=== PATIENT | male | born 2000 | race Caucasian/White ===

== ENCOUNTER 2024-01-22 03:38 | Emergency (ER) | payer OTHER ==
[2024-01-22] MEDS ORDERED: LIDOCAINE 1% 20 ML MDV ONE (03:48)
[2024-01-22] MEDS ORDERED: IBUPROFEN 400 MG TAB ONE (03:49)
[2024-01-22] MEDS ORDERED: TDAP (DIPHTH,PERTUSS(ACELL),TET VAC) 0.5 ML VIAL IMVAC ONE (03:49)
[2024-01-22] MEDS ORDERED: DIAZEPAM 5 MG TABLET ONE (04:06)
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
[2024-01-22] MEDS ORDERED: TRAMADOL HCL 50 MG TAB ONE (06:27)
[2024-01-22 09:02] VITALS: TEMP 98.1
[2024-01-22 09:10] VITALS: BP 111/84; O2SAT 100
== END 2024-01-22 06:56 | disposition home or self-care (01) ==
LOC: ER 03:38
DX: S01.81XA Laceration without foreign body of other part of head, initial encounter (principal); S51.811A Laceration without foreign body of right forearm, initial encounter; S61.011A Laceration without foreign body of right thumb without damage to nail, initial encounter; Y04.8XXA Assault by other bodily force, initial encounter
CPT/HCPCS: 96372; 99285; 12002; 12011; J2001; 12001; J2003

== ENCOUNTER 2024-02-03 16:29 | Emergency (ER) | payer OTHER ==
--- NOTE | 2024-02-03 17:10 | ER ---
Nurse's Notes [facility] Name: Sathish Ochoa Age: 23 yrs Sex: Male : 2000 Arrival Date: 02/03/2024 Time: 16:29 Bed 9 Private MD: Diagnosis: Encounter for removal of sutures Presentation: 02/02 16:38 Chief complaint: Patient states: Here to have sutures removed that were placed on cm10 01/21. Pt has 3 sutures to right thumb, 7 to right forearm and 5 to chin. redness or swelling noted. Coronavirus screen: Client denies travel out of the [place] in the last 14 days. Ebola Screen:. Initial Sepsis Screen: Does the patient meet any 2 criteria? HR > 90 bpm. Does the patient have a suspected source of infection? No. Patient's initial sepsis screen is negative. Risk Assessment: Do you want to hurt yourself or someone else? Patient reports no desire to harm self or others. Onset of symptoms was February 03, 2024. 16:38 Method Of Arrival: Ambulatory [facility] 16:38 Acuity: ELIEL 5 cm10 Triage Assessment: 16:40 General: Appears in no apparent distress. comfortable, Behavior is calm, cooperative. cm10 Pain: Denies pain. Neuro: No deficits noted. Level of Consciousness is awake, alert, obeys commands, Oriented to person, place, time, situation, Appropriate for age. Derm: Sutures to right thumb, right forearm and chin. Historical: - Allergies: 16:40 No Known Allergies; cm10 - Home Meds: 16:40 None [Active]; cm10 - PMHx: 16:40 None; cm10 - PSHx: 16:40 None; cm10 - Immunization history:: Adult Immunizations up to date. - Infectious Disease History:: Denies. - Social history:: Smoking status: Patient reports the use of cigarette tobacco products, denies chronic smoking, but will smoke occasionally, Reported history of juuling and/or vaping. Screenin:22 [facility] ED Fall Risk Assessment (Adult) History of falling in the last 3 months, tl4 including since admission No falls in past 3 months (0 pts) Confusion or Disorientation No (0 pts) Intoxicated or Sedated No (0 pts) Impaired Gait No (0 pts) Mobility Assist Device Used No (0 pt) Altered Elimination No (0 pt) Score/Fall Risk Level 0 - 2 = Low Risk Oriented to surroundings, Maintained a safe environment, Educated pt \T\ family on fall prevention, incl call for assistance when getting out of bed, Assessed \T\ reinforced patient's understanding of fall precautions. Abuse screen: Denies threats or abuse. Denies injuries from another. Nutritional screening: No deficits noted. Tuberculosis screening: No symptoms or risk factors identified. Assessment: 17:21 General: Appears in no apparent distress. Behavior is calm, cooperative. Pain: Denies tl4 pain. Neuro: Level of Consciousness is awake, alert, obeys commands, Oriented to person, place, time, situation. Cardiovascular: Capillary refill < 3 seconds Patient's skin is warm and dry. Respiratory: Airway is patent Respiratory effort is even, unlabored, Respiratory pattern is regular, symmetrical. GI: No signs and/or symptoms were reported involving the gastrointestinal system. : No signs and/or symptoms were reported regarding the genitourinary system. EENT: No signs and/or symptoms were reported regarding the EENT system. Derm: No signs and/or symptoms reported regarding the dermatologic system. Musculoskeletal: No signs and/or symptoms reported regarding the musculoskeletal system. Vital Signs: 16:38 BP 134 / 80; Pulse 102; Resp 16; Temp 97.6; Pulse Ox 100% on R/A; Weight 70.31 kg; cm10 Height 6 ft. 1 in. ; Pain 0/10; 17:22 BP 125 / 74; Pulse 71; Resp 18; Temp 97.6(O); Pulse Ox 100% on R/A; Pain 0/10; tl4 16:38 Body Mass Index 20.45 (70.31 kg, 185.42 cm) cm10 16:38 Pain Scale: Adult cm10 17:22 Pain Scale: Adult tl4 ED Course: 16:32 Patient arrived in ED. im 16:34 Blake Balderas PA is PHCP. cp 16:34 Rudi Anglin DO is Attending Physician. cp 16:40 Triage completed. cm10 16:41 Arm band placed on Patient placed in an exam room, on a stretcher. cm10 17:21 Wojciech Aguero, RN is Primary Nurse. tl4 17:23 Patient has correct armband on for positive identification. Bed in low position. Call tl4 light in reach. Adult w/ patient. Provided Education on: call galdamez. Door closed. Noise minimized. Moved to private room. 17:23 No provider procedures requiring assistance completed. Patient did not have IV access tl4 during this emergency room visit. Administered Medications: No medications were administered Medication: 17:22 VIS not applicable for this client. tl4 Outcome: 17:09 Discharge ordered by . sujey 17:23 Discharged to home ambulatory, with family, tl4 17:23 Condition: stable 17:23 Discharge instructions given to patient, Instructed on discharge instructions, follow up and referral plans. Demonstrated understanding of instructions, follow-up care, 17:23 Patient left the ED. tl4 Signatures: Blake Balderas PA PA cp Mendoza, Itzel im Martinez, Clarissa, RN RN cm10 Wojciech Aguero RN RN tl4
--- NOTE | 2024-02-03 17:10 | EDPHYS ---
Physician Documentation [facility] Name: Sathish Ochoa Age: 23 yrs Sex: Male : 2000 Arrival Date: 02/03/2024 Time: 16:29 Bed 9 Private MD: ED Physician Rudi Anglin HPI: 02/02 17:00 This 23 yrs old Male presents to ER via Ambulatory with complaints of Suture Removal. cp 17:00 The patient has sutures on the chin and right forearm and right thumb. Previous cp treatment: The patient was initially treated 12 day(s) ago, the care was rendered at [facility], Treatment type: The patient's original treatment included sutures, Previous recheck: the patient has not been checked since the original treatment. Sutures/shannon progress: The patient has no c/o's. The wound is well-healing with no redness, swelling, discharge, or dehiscence reported. Historical: - Allergies: 16:40 No Known Allergies; cm10 - Home Meds: 16:40 None [Active]; cm10 - PMHx: 16:40 None; cm10 - PSHx: 16:40 None; cm10 - Immunization history:: Adult Immunizations up to date. - Infectious Disease History:: Denies. - Social history:: Smoking status: Patient reports the use of cigarette tobacco products, denies chronic smoking, but will smoke occasionally, Reported history of juuling and/or vaping. ROS: 17:00 Constitutional: HX per HPI cp 17:00 Skin: Positive for of the chin and right forearm and right thumb, hx of laceration cp repair with sutures, 17:00 All other systems are negative, Exam: 17:05 Constitutional: The patient appears in no acute distress, alert, awake, non-toxic, well cp developed, well nourished, 17:05 Head/face: Noted is sutures noted to chin. cp 17:05 Musculoskeletal/extremity: Extremities: noted in the right forearm and right thumb: noted sutures, 17:05 Skin: sutures inspected and wounds appear well healed without erythema, no dehiscence, no swelling and no drainage noted. Vital Signs: 16:38 BP 134 / 80; Pulse 102; Resp 16; Temp 97.6; Pulse Ox 100% on R/A; Weight 70.31 kg; cm10 Height 6 ft. 1 in. ; Pain 0/10; 17:22 BP 125 / 74; Pulse 71; Resp 18; Temp 97.6(O); Pulse Ox 100% on R/A; Pain 0/10; tl4 16:38 Body Mass Index 20.45 (70.31 kg, 185.42 cm) cm10 16:38 Pain Scale: Adult cm10 17:22 Pain Scale: Adult tl4 MDM: 17:06 Medical Screening Exam initiated cp 17:09 Data reviewed: vital signs, nurses notes, and as a result, I will discharge patient. cp 17:09 Counseling: I had a detailed discussion with the patient and/or guardian regarding the cp historical points, exam findings, and any diagnostic results supporting the discharge/admit diagnosis, to return to the emergency department if symptoms worsen or persist or if there are any questions or concerns that arise at home. Response to treatment: the patient's symptoms have markedly improved after treatment, and as a result, I will discharge patient. Administered Medications: No medications were administered Disposition: 02/03 14:04 Chart complete. cp Disposition Summary: 02/03/24 17:09 Discharge Ordered Notes: Location: Home cp Problem: new cp Symptoms: have improved cp Condition: Stable cp Diagnosis - Encounter for removal of sutures cp Followup: cp - With: Private Physician - When: As needed - Reason: Worsening of condition Discharge Instructions: - Discharge Summary Sheet cp - How to Change Your Wound Dressing cp - Suture Removal, Care After cp Forms: - Medication Reconciliation Form cp - Antibiotic Education cp - Prescription Opioid Use cp - Patient Portal Instructions cp - Leadership Thank You Letter cp Addendum: 02/05/2024 16:29 Co-signature as Attending Physician, Rudi Anglin DO. m s3 Signatures: Blake Balderas PA PA cp Sims, Marcus, DO DO ms3 Linda Chavez, RN RN cm10
[2024-02-03 17:38] VITALS: BP 125/74; TEMP 97.6; O2SAT 100
== END 2024-02-03 17:23 | disposition home or self-care (01) ==
LOC: ER 16:29
DX: Z48.02 Encounter for removal of sutures (principal)
CPT/HCPCS: 99283